=== PATIENT | female | born 1945 | race Caucasian/White ===

== ENCOUNTER 2020-08-17 12:14 | Emergency (ER) | payer MEDICARE, SELFPAY ==
--- NOTE | ~2020-08-17 | XR_ITS ---
EXAMINATION: XR nasal bones min 3V EXAM DATE: 08/17/2020 13:04 INDICATION: Initial encounter following injury, with pain of the nose and upper lip. Dogbite. TECHNIQUE: Nasal bone frontal, bilateral lateral projections. There is no prior study for compariso n. FINDINGS: There are no acute fractures or dislocations identified. There is no subcutaneous gas. Th e soft tissue is unremarkable. Dental implants. IMPRESSION: No acute osseous findings. Reviewed, dictated and finalized at location B. IMPRESSION: No acute osseous findings.
[2020-08-17 12:26] VITALS: BP 121/56; PULSE 71; RESP 16; TEMP 36.5; O2SAT 100
--- NOTE | 2020-08-17 12:43 | ED.ANIMALBIT ---
HPI - Animal Bite General Chief Complaint: Animal Bite Stated Complaint: dog bite to nose Time Seen by Provider: 08/17/20 12:24 Source: patient and RN notes reviewed Mode of arrival: ambulatory Limitations: no limitations History of Present Illness HPI narrative: Patient is a 75-year-old female who presents to emergency department for evaluation of dog bite to the face patient was bending over when her dog bit her on the nose patient notes abrasion to the left side of the nose had a small amount of epistaxis notes aching pain denies other injuries or complaints otherwise in no distress resting comfortably on arrival patient notes her tetanus to be up-to-date in the last 5 years Related Data Allergies Allergy/AdvReac Type Severity Reaction Status Date / Time propoxyphene Allergy Mild Unverified 03/11/18 07:05 Sulfa (Sulfonamide Allergy Mild Unverified 03/11/18 07:05 Antibiotics) Review of Systems Review of Systems: All systems reviewed & are unremarkable except as noted in HPI and below PMFSH Social History Social History (Updated 08/17/20 @ 13:15 by David Gutierres PA-C) Smoking status: Never smoker Exam Narrative: Exam Narrative: GENERAL: Well-appearing, well-nourished, and in no acute distress. HEAD: Normocephalic, atraumatic. EYES: PERRLA and EOMI. ENT: Nares clear, no rhinorrhea or epistaxis. Mucous membranes moist. CHEST: Clear to auscultation. No respiratory distress. No wheezes rales or rhonchi HEART: Regular rate and rhythm. No murmur heard. EXTREMITIES: Normal range of motion. No edema. SKIN: Warm, dry, no rash. Small abrasion to the left nare resolved epistaxis in the nares NEURO: No focal deficits. Alert and oriented x3. PSYCH: Normal mood and affect. Course Course Emergency Course: Patient in the room no distress aware of case findings treatment plan and diagnosis agreeing to follow-up as instructed or to return if symptoms worsen or concerns Vital Signs Vital signs: Vital Signs Temperature 97.7 F 08/17/20 12:26 Pulse Rate 71 08/17/20 12:26 Respiratory Rate 16 08/17/20 12:26 Blood Pressure 121/56 L 08/17/20 12:26 Pulse Oximetry 100 08/17/20 12:26 Temperature 97.7 F 08/17/20 12:26 Pulse Rate 71 08/17/20 12:26 Respiratory Rate 16 08/17/20 12:26 Blood Pressure 121/56 L 08/17/20 12:26 Pulse Oximetry 100 08/17/20 12:26 MDM - Animal Bite MDM Narrative Medical decision making narrative: Patient with superficial abrasions from dog bite felt appropriate for outpatient reevaluation provided with reasons to return Imaging Data Radiologist's impression: ITS Impressions Nasal Bones X-Ray 08/17/20 13:13 IMPRESSION: No acute osseous findings. Discharge Plan Discharge Clinical Impression: Dog bite, Abrasion of nose Patient Disposition: Home, Self-Care Condition: Stable Instructions: Antibiotic Form, Animal Bite (ED) Additional Instructions: Follow up with primary care in the next 2-3 days to set up for re-evaluation return if symptoms worsen or concerns, any increase in redness swelling pain or fever over 100.5 Clean wound with mild soapy water. Apply antibiotic ointment and clean dressing at least three times daily Follow patient education sheets Follow-up/Referrals: Brennen,Crow Cobb MD [Primary Care Provider] -
== END 2020-08-17 13:33 | disposition home or self-care (01) ==
PROVIDERS: Emergency Provider Family Medicine; PCP Internal Medicine
DX: S00.31XA Abrasion of nose, initial encounter (principal); W54.0XXA Bitten by dog, initial encounter
CPT/HCPCS: 70160; 99283

== ENCOUNTER 2023-07-03 12:20 | Emergency (ER) | payer MEDICARE, SELFPAY ==
--- NOTE | ~2023-07-03 | CT_ITS ---
Non-contrast CT scan of the Abdomen and Pelvis Clinical indication: Left lower quadrant pain Technique: 2.5 mm axial scans were obtained through the abdomen and pelvis without intravenous or or al contrast. Dose reduction technique was used on this scan by utilizing automated exposure control a nd iterative reconstruction technique. The dose-length product (DLP) was 250.93 mGy-cm. Findings: Images through the lung bases reveal no abnormalities. There is no evidence of renal or ureteral calculi. The kidneys and the ureters are nondilated. Hypodense hepatic lesions are most compatible with cysts or hemangiomas. The spleen, pancreas, gallbl adder, and adrenals appear normal. There is no aortic aneurysm. There is no evidence of bowel obstruction. Sigmoid diverticulosis noted. Suspected mild wall thickeni ng and pericolonic inflammatory change at the sigmoid colon. Images through the pelvis were performed. There is no evidence of ascites or lymphadenopathy. Urinary bladder unremarkable. No pelvic mass seen. Impression: Suspected mild acute sigmoid diverticulitis versus sequela of chronic diverticulosis. No abscess or f ree air. Probable hepatic cysts and/or hemangiomas. Reviewed, dictated and finalized at location . Impression: Suspected mild acute sigmoid diverticulitis versus sequela of chronic diverticu losis. No abscess or free air. Probable hepatic cysts and/or hemangiomas.
[2023-07-03 12:24] VITALS: BP 140/63; PULSE 66; RESP 16; TEMP 36.8; O2SAT 98
[2023-07-03 12:47] LABS: Basophils Absolute Auto 0.1 K/mm3 (0.0-0.1); Basophils Percent Auto 0.7 % (0.2-1.2); Eosinophils Absolute Auto 0.1 K/mm3 (0-0.3); Eosinophils Percent Auto 0.8 % (0-4.4); Hematocrit 38.5 % (37.0-47.0); Hemoglobin 13.2 g/dL (12.0-15.0); Immature Granulocyte Absolute 0.05 K/mm3 (0.00-0.031); Immature Granulocyte Percent A 0.5 % (0-0.5); Lymphocytes Absolute Auto 1.28 K/mm3 (0.9-3.2); Lymphocytes Percent Auto 13.4 % (18.3-44.2); Mean Corpuscular HGB Conc 34.3 g/dl (32-36); Mean Corpuscular Hemoglobin 30.7 pg (26-34); Mean Corpuscular Volume 89.5 fl (80-100); Mean Platelet Volume 10.2 fl (7.4-10.4); Monocytes Absolute Auto 0.4 K/mm3 (0.1-0.6); Monocytes Percent Auto 4.6 % (2.6-8.5); Neutrophils Absolute Auto 7.6 K/mm3 (1.3-6.7); Platelet Count Result 227 k/mm3 (150-375); Red Cell Distribution Width 12.5 % (11.5-14.5); White Blood Count 9.5 K/mm3 (4.5-10.0)
[2023-07-03 12:59] LABS: Alanine Aminotransferase 14 U/L (6-35); Albumin Level 4.3 g/dL (3.5-5.1); Alkaline Phosphatase 83 U/L (38-126); Anion Gap 7 mmol/L (4-12); Aspartate Amino Transferase 24 U/L (14-36); Bilirubin,Total 0.6 mg/dL (0.2-1.3); Blood Urea Nitrogen 19 mg/dL (7-17); Calcium 9.3 mg/dL (8.4-10.2); Carbon Dioxide 25 mmol/L (22-30); Chloride 103 mmol/L (98-107); Estimated CRCL calculation 49 ml/min; Estimated Glomerular Filt Rate > 60; Glucose 126 mg/dL (65-110); Lipase 113 U/L (23-300); Potassium 3.9 mmol/L (3.4-5.0); Sodium 135 mmol/L (137-145)
[2023-07-03] MEDS: SODIUM CHLORIDE 0.9% IV 500 ML 999 ML IV CONT (13:13)
[2023-07-03] MEDS: MORPHINE SULFATE (*CRX) 4 MG/ML INJ IV PUSH (13:13)
--- NOTE | 2023-07-03 13:21 | PC.NURSE ---
patient ambulated to restroom with standby assistance. states that she had a BM, no blood noted. resting in bed at this time.
[2023-07-03 13:30] VITALS: BP 133/57; PULSE 66; RESP 18; O2SAT 100
--- NOTE | 2023-07-03 13:46 | PC.NURSE ---
Pt returned to room 7 at this time
[2023-07-03 14:24] LABS: Appearance Urine Clear (Clear); Bilirubin Urine Negative (Negative); Blood Urine Negative (Negative); Color Urine Yellow (Yellow); Glucose Urine UA Negative (Negative); Ketones Urine Negative (Negative); Leukocyte Esterase Ur Negative LEU/UL (Negative); Nitrate Urine Negative (Negative); Protein Urine Negative (Negative); Specific Grav Ur 1.008 (1.001-1.035); Urobilinogen Urine 0.2 mg/dL (<2.0); pH Urine 7.5 (5.0-9.0)
[2023-07-03 14:31] LABS: Add Urine Microscopic? NO
--- NOTE | 2023-07-03 14:42 | ED.ABDPAIN ---
HPI - Abdominal Pain General Chief Complaint: Abdominal Pain Stated Complaint: Abd pain Time Seen by Provider: 07/03/23 12:27 Source: patient Mode of arrival: ambulatory Limitations: no limitations History of Present Illness HPI narrative: 78-year-old with a history of diverticulosis here with a complaint of left lower abdominal pain for past few days however since this morning she has been having more pain. She denies any fever or chills. Patient states that she had a bowel movement prior to coming to the ER. Denies any blood in the stool to MD elicited complaint: abdominal pain Pertinent past history: none Onset (ago): day(s) (3) Pain Consistency: constant Location: LLQ Severity: moderate Quality: aching Radiation: none Migration to: no migration Exacerbating factors: nothing Relieving factors: nothing Related Data Allergies Allergy/AdvReac Type Severity Reaction Status Date / Time propoxyphene Allergy Mild Unknown Verified 07/03/23 13:12 Sulfa (Sulfonamide Allergy Mild Hives Verified 07/03/23 13:12 Antibiotics) Review of Systems Review of Systems: All systems reviewed & are unremarkable except as noted in HPI and below Constitutional: Constitutional: Reports no additional constitutional complaints Eyes: Eyes: Reports no additional eye complaints ENT: Reports system reviewed and no additional complaints, except as documented Cardiovascular: Cardiovascular: Reports no additional cardiovascular complaints Gastrointestinal: Gastrointestinal: Reports as per HPI Genitourinary: Genitourinary: Reports no additional female genitourinary complaints Musculoskeletal: Musculoskeletal: Reports no additional musculoskeletal complaints [facility] Social History Social History (Updated 08/17/20 @ 13:15 by David Gutierres, PARemiC) Smoking status: Never smoker Exam Narrative: GENERAL: Well-appearing, well-nourished, and in no acute distress. HEAD: Normocephalic, atraumatic. EYES: PERRLA and EOMI. ENT: Nares clear, no rhinorrhea or epistaxis. Mucous membranes moist. NECK: Supple. CHEST: Clear to auscultation. No respiratory distress. HEART: Regular rate and rhythm. No murmur heard. Normal peripheral pulses. ABDOMEN: Soft, mild tendeness in the llq, nondistended, normal active bowel sounds. EXTREMITIES: Normal range of motion. No edema. SKIN: Warm, dry, no rash. NEURO: No focal deficits. Alert and oriented x3. PSYCH: Normal mood and affect. Course Course Emergency Course: notified patient about her lab work, CT findings. Recommended to take antibiotic as prescribed. Advised to return to the ER if she has high fever or increased pain. Vital Signs Vital signs: Vital Signs Temperature 36.8 C 07/03/23 12:24 Pulse Rate 66 07/03/23 12:24 Respiratory Rate 16 07/03/23 12:24 Blood Pressure 140/63 07/03/23 12:24 Pulse Oximetry 98 07/03/23 12:24 Temperature 36.8 C 07/03/23 12:24 Pulse Rate 66 07/03/23 13:30 Respiratory Rate 18 07/03/23 13:30 Blood Pressure 133/57 L 07/03/23 13:30 Pulse Oximetry 100 07/03/23 13:30 MDM - Abdominal Pain Differential Diagnosis Differential diagnosis: Likely abdominal pain, constipation, diverticulitis, gastroenteritis and small bowel obstruction Lab Data 07/03/23 12:36 07/03/23 12:36 Labs: Lab Results 07/03/23 07/03/23 Range/Units 12:36 14:17 WBC 9.5 (4.5-10.0) K/mm3 RBC 4.30 (4.2-5.4) M/mm3 Hgb 13.2 (12.0-15.0) g/dL Hct 38.5 (37.0-47.0) % MCV 89.5 (80-100) fl MCH 30.7 (26-34) pg MCHC 34.3 (32-36) g/dl RDW 12.5 (11.5-14.5) % Plt Count 227 (150-375) k/mm3 MPV 10.2 (7.4-10.4) fl Immature Gran % (Auto) 0.5 (0-0.5) % Neut % (Auto) 80.0 H (45.5-73.1) % Lymph % (Auto) 13.4 L (18.3-44.2) % [place] % (Auto) 4.6 (2.6-8.5) % Eos % (Auto) 0.8 (0-4.4) % Baso % (Auto) 0.7 (0.2-1.2) % Lymph # (Auto) 1.28 (0.9-3.2) K/mm3 [place] # (Auto)
[2023-07-03 15:13] VITALS: BP 132/84; PULSE 74; RESP 14; O2SAT 99
== END 2023-07-03 15:13 | disposition home or self-care (01) ==
PROVIDERS: Emergency Provider Family Medicine; PCP Internal Medicine
DX: K57.32 Diverticulitis of large intestine without perforation or abscess without bleeding (principal)
CPT/HCPCS: 36415; 74176; 80053; 81003; 83690; 85025; 96361; 96374; 99284; J2270; J7040

== ENCOUNTER 2023-12-13 07:32 | Day surgery (SDC) | payer MEDICARE, SELFPAY ==
[2023-11-21 15:14] VITALS: BMI 23.7
[2023-12-03 10:15] VITALS: BMI 22.4
[2023-12-13 07:58] VITALS: BP 155/70; PULSE 71; RESP 16; TEMP 36.8; O2SAT 100; BMI 22.8
--- NOTE | 2023-12-13 08:09 | WPDHPUPDATE1 ---
History and Physical Update Update Date/Time: 12/13/23 08:09 History and Physical has been reviewed, including an updated exam of the patient. There are NO changes in the patient's condition. Risks, benefits, and alternatives have been discussed and questions answered. Patient agrees to proceed with procedure.
--- NOTE | 2023-12-13 08:11 | WPDANESEPPF ---
Anes - Initial Pre Proc Eval Procedure: Operation Date: 12/13/23 09:00 Proposed Procedures p Diagnostic Colonoscopy - Chapincito Dias MD Date/Time: 12/13/23 08:11 Surgeon: Chapincito Dias MD Pre Op Diagnosis: Diverticulitis w/o Perf or ABS, IBS w/Constipation Patient Data Age: 78 Gender: F Height: 1.68 m Weight: 64.3 kg Last Vital Signs Temp 36.8 C 12/13/23 07:58 Pulse 71 12/13/23 07:58 Resp 16 12/13/23 07:58 BP 155/70 H 12/13/23 07:58 Pulse Ox 100 12/13/23 07:58 O2 Del Method Room Air 12/13/23 07:58 Allergies Allergy/AdvReac Type Severity Reaction Status Date / Time propoxyphene Allergy Mild Unknown Verified 12/13/23 07:51 Sulfa (Sulfonamide Allergy Mild Hives Verified 12/13/23 07:51 Antibiotics) Home Medications Medication Instructions Recorded Confirmed Type alprazolam 0.25 mg tablet (Xanax) 0.25 mg PO QHS PRN Anxiety 11/14/23 12/13/23 History dicyclomine 10 mg capsule 10 mg PO BID 11/14/23 12/13/23 History prucalopride 2 mg tablet 2 mg PO DAILY 11/14/23 12/13/23 History (Motegrity) sertraline 20 mg/mL oral 20 mg PO DAILY 11/14/23 12/13/23 History concentrate (Zoloft) hydroxyzine HCl 10 mg tablet 10 mg PO DAILY PRN ALLERGIES 12/03/23 12/13/23 History metoprolol tartrate 25 mg tablet 12.5 mg PO BID 12/03/23 12/13/23 History Patient hx anesthesia problems: none Family hx anesthesia problems: none Results Review: All pre-operative results and documents have been reviewed as part of the pre-operative evaluation. [facility] Past Medical History Medical History Anxiety and depression Diverticulitis Diverticulosis HTN (hypertension) Irritable bowel syndrome with constipation Surgical History Surgical History (Updated 12/13/23 @ 08:11 by Ferny Mireles MD) H/O exploratory laparotomy Social History Social History Smoking status: Never smoker Alcohol intake: never Substance use: never Substance use type: does not use Living arrangements: with family Spiritual care concerns: No Anes - Eval Final PreProcedure Day of Procedure 12/13/23 08:11 Patient weight: normal Heart: regular rate and rhythm Lungs: clear to auscultation Airway: Mallampati scale class II Neurological: alert and oriented Last oral intake: >/= 8 hours ASA classification: III Emergent: no Anesthetic plan: proceed Anesthesia type and monitoring: general GIVS and standard monitoring Results Review: All pre-operative results and documents have been reviewed as part of the pre-operative evaluation. Informed Consent: The patient's anesthetic plan and its attendant risks and benefits were discussed with the patient/family/POA. Questions were solicited and answers provided to the satisfaction of the patient/family/POA.
[2023-12-13] MEDS: LACTATED RINGERS 1,000 ML 150 ML IV CONT (08:12)
[2023-12-13 08:58] VITALS: BP 112/57; PULSE 69; RESP 14; O2SAT 100
[2023-12-13 09:08] VITALS: BP 97/57; PULSE 70; RESP 14; O2SAT 100
--- NOTE | 2023-12-13 09:12 | WPDANESPN ---
Anes - Prog Note Post-Op Date/Time: 12/13/23 09:12 Cardiovascular status: normal Respiratory status: normal Airway patency: baseline Mental status: baseline Post-Op hydration status: normal Vital Signs: Last Vital Signs Temp 36.8 C 12/13/23 07:58 Pulse 70 12/13/23 09:08 Resp 14 12/13/23 09:08 BP 97/57 L 12/13/23 09:08 Pulse Ox 100 12/13/23 09:08 O2 Del Method Room Air 12/13/23 09:08 Pain Score (VAS): 0/10 Patient Feedback: Patient satisfied with anesthetic care.
[2023-12-13 09:16] VITALS: BP 132/63; PULSE 64; RESP 16; O2SAT 100
== END 2023-12-13 09:26 | disposition home or self-care (01) ==
PROVIDERS: PCP Internal Medicine; Visit Provider Internal Medicine Gastroenterology
PROC: 0DJD8ZZ Inspection of Lower Intestinal Tract, Via Natural or Artificial Opening Endoscopic (ICD-10-PCS; CPT 45378; principal; 2023-12-13 09:00)
DX: K57.90 Diverticulosis of intestine, part unspecified, without perforation or abscess without bleeding (principal); K57.30 Diverticulosis of large intestine without perforation or abscess without bleeding; K64.8 Other hemorrhoids; R10.84 Generalized abdominal pain
CPT/HCPCS: 45378

== ENCOUNTER 2024-05-06 13:00 | Outpatient (CLI) | payer MEDICARE, SELFPAY ==
--- NOTE | ~2024-05-06 | CT_ITS ---
EXAMINATION: CT abdomen pelvis wo con DATE: 05/06/2024 13:31 INDICATION: Abdominal pain. TECHNIQUE: Computed tomography (CT) of the abdomen and pelvis was performed without intravenous contr ast. Automated exposure control and iterative reconstruction technique were employed. The dose-length product was 264.30 mGy-cm. COMPARISON: 07/03/2023 FINDINGS: Minimal discoid atelectasis in the left lower lobe. Heart size is normal. No pericardial or pleural e ffusion. Again seen are 3 low-attenuation and hepatic cysts the largest in the right hepatic lobe scotty suring 1.8 cm in maximal diameter. Gallbladder, spleen, pancreas, bilateral adrenal glands and kidney s are normal. Moderate diverticulosis along the sigmoid colon without adjacent from trace stranding t o suggest diverticulitis. There is wall thickening along the descending colon without associated dive rticula which could be more consistent with focal mild colitis. Small bowel and appendix are normal. Bladder is normal. Anteverted uterus and bilateral adnexa are unremarkable. No free intraperitoneal g as or fluid. No pathologically enlarged abdominal or pelvic lymphadenopathy. 15 degrees thoracolumbar dextrocurvature with moderate spondylosis. IMPRESSION: 1. Inflammatory stranding surrounding the descending colon which is not associated with the more dist al sigmoid diverticulosis and would favor focal colitis which could be infectious or, inflammatory or ischemic in etiology. Reviewed, dictated and finalized at location A. DEVELOPER IMPRESSION: 1. Inflammatory stranding surrounding the descending colon which is not associa francine with the more distal sigmoid diverticulosis and would favor focal colitis w hich could be infectious or, inflammatory or ischemic in etiology.
--- OUTSIDE RECORDS SUMMARY | 2024-05-06 13:06 | XMS_ITS | Encounter Summary ---
Author Organization [facility] Address [address] [place] [address] Phone Care Team Providers Care Architectural Design Professor Name Role Phone Crow Hutton MD Primary Care Provider Crow Hutton MD Unavailable [phone] Reason for Visit * Reason Onset Date Comments Diverticulitis 05/05/2024 Encounter Details Date Type Department Care Team (Late st Contact Info) Description 05/05/2024 Telephone [facility] Gastroenterology [address] 12th [place] [address] [place] [address] Maite Tristan Diverticulitis Social History Tobacco Use Types Packs/Day Years Used Date Smoking Tobacco: Never Smokeless Tobacco: Never Alcohol Use Standard Drinks/Week Comments No 0 (1 standard drink = 0.6 oz pur e alcohol) PHQ-2 Answer Date Recorded PHQ-2 Total Score (If total score is 3 or more points, staff should administer the PHQ-9) 0 08/08/2023 Exercise Vital Sign Answer Date Recorde d Days of Exercise per Week 5 days 2018 Minutes of Exercise per Session 50 min 05/20/2018 Comments No Sex and Gender Information Value Date Recorded Sex Assigned at Not on file 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 She needs CT a/p no contrast to r/o diverticulitis, abd pain. Would like this set up at [facility] today if possible. Called [facility] at [phone] and they can accommodate her today if ordered stat and she has a PA completed. Devorha senta request to precert and will fax the finalized order and PA to them at [phone] then call backto schedule it. Patricia will have her drive her, it is down the [address]. ICAL RESEARCH ENGINEER * Telephone Encounter - Maite Tristan - 05/05/2024 3:26 PM CHEMICAL RESEARCH ENGINEER Rcv'd vm msg from pt she thinks she may be having a diverticulitis attack and with incoming snow storm is trying to avoid going to ER. Requesting call back to see if maybe she needs antibiotics. #[phone] ICAL RESEARCH ENGINEER documented in this encounter Plan of Treatment Not on file documented as of this encounter Visit Diagnoses Not on filedocumented in this encounter Care Teams Architectural Design Professor Relationship Specialty Start Date End Date Crow Hutton MD [address] [place] [address] PCP - General 06/21/17 Crow Hutton MD [address] [place] [address] 06/21/17 documented as of this encounter
--- OUTSIDE RECORDS SUMMARY | 2024-05-06 13:06 | XMS_ITS | Encounter Summary ---
Author Organization [facility] Address [address] [place] [address] Phone Care Team Providers Care Rvda Master Certified Rv Technician Name Role Phone Crow Hutton MD Primary Care Provider Crow Hutton MD Unavailable [phone] Reason for Referral * Diagnostic Imaging (Routine) - Authorized Specialty Diagnoses / Procedures Referred By Contac t Referred To Contact Diagnoses Abdominal pain History of diverticulitis Procedures CT Abdomen Pelvis WO Contrast Jimmy Morrison MD [address] [place] [address] Phone: tel: fax: External Order Referral ID Status Reason Start Date Expiration Date V isits Requested Visits Authorized [id number] Authorized 05/06/2024 06/05/2025 1 1 RVISOR MET[employer]ABRICATING Encounter Details Date Type Department Care Team (Late st Contact Info) Description 05/06/2024 Orders Only [facility] Gastroenterology [address] [facility] [address] [place] [address] [place] [id number] Jimmy Morrison MD [address] [place], [place] [id number] Abdominal pain (Primary Dx); History of diverticulitis Social History Tobacco Use Types Packs/Day Years [...] on file 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 Gender Identity Not on file Sexual Orientation Not on file 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 file Not on file N ot on file documented as of this encounter Plan of Treatment Scheduled Orders Name Type Priority Associated Diagnoses Orde r Schedule CT Abdomen Pelvis WO Contrast Imaging Schedule Routine, Read Routine (OP Routine) Abdominal pain History of diverticulitis Expected: 05/06/2024, Expires: 06/03/2024 documented as of this encounter Visit Diagnoses Diagnosis Abdominal pain- Primary Abdominal pain, unspecified site History of diverticulitis documented in this encounter Care Teams Rvda Master Certified Rv Technician Relationship Specialty Start Date End Date Crow Hutton MD [address] [place] [address] PCP - General 06/21/17 Crow Hutton MD [address] [place] [address] 06/21/17 documented as of this encounter
--- OUTSIDE RECORDS SUMMARY | 2024-05-06 13:06 | XMS_ITS | Clinical Summary ---
Author Organization [facility] Address [facility] [place] [address] Care Team Providers Care Carpenter Packing Name Role Phone Crow Hutton MD Primary Care Provider Allergies Active Allergy Reactions Criticality Noted Date Comments Sulfa Antibiotics Rash Low 12/19/2017 Medications metoprolol tartrate 50 MG tablet Take by mouth 2 (two) times daily. Active atorvastatin 20 MG tablet Take 20 mg by mouth daily. Active sertraline 100 MG tablet Take 150 mg by mouth daily. Active polyethylene glycol powder Take 17 g by mouth daily. Dissolve powder in 240 mL water Active Vaginal Lubricant (REPLENS) Gel Use vaginally 2-3 times daily as directed for the next week 35 g 2 8 Active Family History Medical History Relation Comments Heart Disease Father Diabetes Mother Hypertension Mother Relation Status Comments Father Mother Social History Tobacco Use Types Packs/Day Years Used Date Smoking Tobacco: Never Smokeless Tobacco: Never Alcohol Use Standard Drinks/Week Comments Yes 0 (1 standard drink = 0.6 oz pur e alcohol) RARELY AUDIT-C Answer Date Recorded Frequency of Alcohol Consumption Never 01/22/2019 Average Number of Drinks Not on file 019 Frequency of Binge Drinking Not on file 08/2018 Comments No Sex and Gender Information Value Date Recorded Sex Assigned at Not on file Legal Sex Female 7:32 PM CDT Gender Identity Not on file Sexual Orientation Not on file Last Filed Vital Signs Vital Sign Reading Time Taken Comments Blood Pressure 133/66 12/19/2017 9:25 AM CDT Pulse 62 12/19/2017 9:25 AM CDT Temperature 36.2 C (97.1 F) 12/19/2017 9:25 AM CDT Respiratory Rate 20 12/19/2017 9:25 AM CDT Oxygen Saturation 99% 12/19/2017 9:27 AM CDT Inhaled Oxygen Concentration - - Weight 63 kg (139 lb) 12/19/2017 9:25 AM CDT Height 167.6 cm (5' 6 ) 12/19/2017 9:25 AM CDT Body Mass Index 22.44 12/19/2017 9:25 AM CDT Plan of Treatment Health Maintenance Due Date Last Done Comments Hepatitis C 1963 Annual Medicare Wellness Visit 2012 Pneumococcal Vaccine: 65+ Years (2 of 2 - PPSV23 or PCV20) 06/02/2015 06/01/2014 DTaP, Tdap and Td Vaccines (2 - Td or Tdap) 04/10/2022 04/10/2012 RSV Immunization or 60+ Years (1 - 1-dose 75+ series) 2022 COVID-19 Vaccine ( season) 2023 07/25/2021, 01/03/2021, 05/29/2020, Additional history exists Influenza Adult (#1) 2023 12/14/2020, 12/15/2019, 12/10/2018, Additional history exists Zoster Vaccines Completed 01/04/2019, 10/07/2018 Dexa Scan (General) Completed 12/27/2021 Meningococcal B Vaccine Aged Out No l onger eligible based on patient's age to complete this topic Meningococcal Vaccine Aged Out No vera maximilian eligible based on patient's age to complete this topic RSV Immunizations Under 20 Months Aged Out No longer eligible based on patient's age to complete this topic Insurance MEDICARE [facility] Care Teams Carpenter Packing Relationship Specialty Start Date End Date Crow Hutton MD [address] [place] [address] PCP - General INTERNAL MEDICINE 12/19/17
--- OUTSIDE RECORDS SUMMARY | 2024-05-06 13:06 | XMS_ITS | Encounter Summary ---
Author Organization [facility] Address [address] [place] [address] Phone Care Team Providers Care Manager Background Name Role Phone Crow Hutton MD Primary Care Provider Crow Hutton MD Unavailable [phone] Encounter Details Date Type Department Care Team (Late st Contact Info) Description 07/24/2022 Telephone [facility] [address] [place] [address] Erick Hoyt Social History Tobacco Use Types Packs/Day Years Used Date Smoking Tobacco: Never Smokeless Tobacco: Never Alcohol Use Standard Drinks/Week Comments No 0 (1 standard drink = 0.6 oz pur e alcohol) Exercise Vital Sign Answer Date Recorde d Days of Exercise per Week 5 days 2018 Minutes of Exercise per Session 50 min 05/20/2018 Comments No Sex and Gender Information Value Date Recorded Sex Assigned at Not on file 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
--- OUTSIDE RECORDS SUMMARY | 2024-05-06 13:06 | XMS_ITS | Encounter Summary ---
Author Organization [facility] Address [address] [place] [address] Phone Care Team Providers Care Wood Filler Name Role Phone Crow Hutton MD Primary Care Provider Crow Hutton MD Unavailable [phone] Encounter Details Date Type Department Care Team (Late st Contact Info) Description 05/06/2024 Telephone [facility] Gastroenterology [address] 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 They have the orders and no PA req. She will get her up and have him bring her.Radiology has Tamiko Galvez's cell for results. T ELECTRICIAN documented in this encounter Plan of Treatment Not on file documented as of this encounter Visit Diagnoses Not on filedocumented in this encounter Care Teams Wood Filler Relationship Specialty Start Date End Date Crow Hutton MD [address] [place] [address] PCP - General 06/21/17 Crow Hutton MD [address] [place] [address] 06/21/17 documented as of this encounter
--- OUTSIDE RECORDS SUMMARY | 2024-05-06 13:06 | XMS_ITS | Clinical Summary ---
Author Organization [facility] Address [address] [place] [id number] Care Team Providers Care Hydrogen Treater Name Role Phone Crow Hutton MD Primary Care Provider Crow Hutton MD Unavailable [phone] Allergies Active Allergy Reactions Criticality Noted Date Comments Amoxicillin-Pot Clavulanate Nausea & Vomiting Low 0 12/14/2021 Iodinated Contrast Media Chest tightness Medium 2018 Sulfa (Sulfonamide Antibiotics) Rash Medium Sulfasalazine Rash Medium 12/19/2017 Medications sertraline (ZOLOFT) 100 mg tabletIndications :pt stated downed dosage to 150mg Take 1 tablet (100 mg total) by mouth every morning Pt stated the dose was increased to 50mg ore 4 8 Active vit C/E/Zn/coppr/lute in/zeaxan (PRESERVISION AREDS-2 ORAL) Take by mouth Ac tive prucalopride (Motegrity) 2 mg tabletIndications :chronic idiopathic constipation Take 1 tablet (2 mg total) by mouth daily 30 tablet 11 4 Active ALPRAZolam (XANAX) 1 mg tablet Take 1 tablet (1 mg total) by mouth nightly as needed 4 Active tretinoin (RETIN-A) 0.025 % gel Apply topically nightly REQUESTING BRAND 45 g 1 4 Active dicyclomine (BENTYL) 10 mg capsule TAKE 1 CAPSULE(10 MG) BY MOUTH FOUR TIMES DAILY BEFORE MEALS AND AT NIGHT AND AT BEDTIME WITH MEALS 360 capsule 4 Active metoprolol tartrate (LOPRESSOR) 25 mg immediate release tablet Take 1 tablet (25 mg total) by mouth 2 (two) times a day Active metroNIDAZOLE (METROGEL) 0.75 % gelIndications:Ac ne Rosacea Apply twice daily to rosacea 45 g 5 4 03/07/20 25 Active Active Problems Problem Noted Date Diagnosed Date Colon cancer screening 09/21/2022 Assessment & Plan (09/21/2022 3:23 PM CDT): Has family history, last colonoscopy 5 years ago, usually goes every 4 years. Her GI doctor in [place] retired and requesting a scope here at the end of December. Hay fever 07/25/2022 Assessment & Plan (07/25/2022 10:21 AM CDT): --Claritin daily -- Hydroxyzine at night and up to 3 times a day for the itching short term --Flonase AM and PM --Zaditor eye drops for the allergy in eyes --Triamcinolone topical cream eyelids only 1 week--then neck and back and ankles for 2 weeks Osteopenia of multiple sites 12/14/2021 Irritable bowel syndrome with constipation 08/22 Assessment & Plan (09/21/2022 3:22 PM CDT): Symptoms improved on motegrity and bentyl. Still taking metamucil with some efficacy. Unfortunately motegrity very expensive. Has enough for the next few months. Discussed going back to [place] which she will consider due to cost. For now will continue current treatment regimen. Assessment & Plan (07/14/2021 1:48 PM CDT): Constipation is likely multifactorial in setting of IBS-C and pelvic floor dysfunction. She has abdominal cramping, which is worse when she is constipated. Occasionally will have spastic colon attacks, which also sound like they are driven by constipation, although she may have had diverticulitis at one point, as per CT 3 years ago. - Recommend continuing with motegrity 1/2 tab per day, which overall seems like it keeps her fairly regular. Advised that she set a hard timepoint at which to take a second 1/2 tab if she has not had a BM yet (for example, take first half tab in am, and if no BM by mid-afternoon, take second half). We have avoided scheduling full tab daily due to prior diarrhea on that regimen. - Start taking daily bentyl TID, can gradually uptitrate if not responding. - Continue with daily metamucil. If symptoms not improving, we will discontinue this given that it may not be helping - Adequate hydration an exercise. - Repeat colonoscopy in 2022 (family hx of colon cancer) Hyperlipidemia 03/27/2017 Acne 07/20/2016 Cervical lymphadenopathy 06/04/2015 Allergic rhinitis 11/30/2014 Keratosis, senilis 08/14/2014 Dermatitis venenata 08/27/2013 Overview (06/29/2017): Impression: [facility] 0.1% on neck, HC on face. 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 b.i.d -She is now back in sinus rhythm as of Sunday AM -would order an echocardiogram given it lasted for a number of hours and that there is a decent likelihood this has been occurring as an outpt -would obtain a TSH to rule out secondary causes, although this is low on the differential -I tried to add on a NT-ProNBP. Would order one tonight if not resulted -her chads-Vasc score is 3 (htn, female, age), so if she remains in atrial fibrillation intermediate designer, she should be on anticoagulant (prefer a DOAC such as apixaban or rivaroxaban). -If she has no recurrent AF during hospitalization, would plan to DC with 30D event monitor to screen for occult Afib, baby aspirin, and PCP follow up. 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 Lentigo 08/14/2014 09/26/2018 Epidermoid cyst 02/07/2013 09/26/2018 Encounters Date Type Department Care Team Description 05/06/2024 Telephone [facility] [address] [place] [address] Advanced Medicine [facility] [place] [address] Nancy Kevin RN 05/06/2024 Orders Only [facility] [address] [place] [address] Medicine [facility] [place] [address] [place] [address] Jimmy Morrison MD Abdominal pain (Primary Dx); History of diverticulitis 05/05/2024 Telephone [facility] [address] [place] [address] Medicine [facility] [place] [address] [place] [address] Maite Tristan Diverticulitis 04/03/2024 Telephone [facility] [address] [place] [address] [place] [id number] Nancy Kevin RN 03/07/2024 10:30 AM [employer] AND [employer]ING GUIDE Office Visit [address] [address] Daiana Crowell NP Rosacea (Primary Dx) 03/07/2024 Orders Only [address] [phone] Crow Hutton MD from Last 3 Months Immunizations Immunization Administration Dates Next Due Influenza, Quad, Adjuvantate d, Intramuscular 12/01/2022 Influenza, Quadrivalent, Hig h Dose, Preservative Free, Intrr 12/14/2021,12/14/2020,12/15/2019 Influenza, Trivalent, Adjuva nted, Intramuscular 01/01/2018 Influenza, Trivalent, High D ose, Split, Preservative Free, Intramuscular 12/10/2018,12/19/2016,12/11/2015,11/30,12/01/2013 Influenza, Trivalent, IM (MDV) 01/10/2013 Influenza, Unspecified 12/14/2020 Pfizer SARS-CoV-2 Monovalent Vaccination (12+ Yrs) PURPLE 07/25/2021,01/03/2021,05/29/2020,05/08 Pneumococcal Conjugate PCV 13 06/01/2014 Pneumococcal Conjugate Pcv20 08/08/2023 Pneumococcal, Unspecified 09/03/2008 RSV, Bivalent, Protein Subun it Rsvpref, Diluent (Abrysvo) 11/23/2022 Tdap 04/10/2012 ZOSTER LIVE 03/18/2199 ZOSTER Recombinant 01/04/2019,10/07/2018 Surgical History Surgery Date Site/Laterality Comments D&C FIRST TRIMESTER / TX INCOMPLETE / MISSED / SEPTIC / INDUCED BREAST BIOPSY 03/19/1991 - 03/18/1992 breast biopsy COSMETIC SURGERY 03/19/1993 - 03/18/1994 face lift RADIOFREQUENCY ABLATION 03/19/2007 - 03/18/2008 Bilateral greater saphenous vein COLONOSCOPY 01/17/2018 - 02/15/2018 ROTATOR CUFF REPAIR Medical History Medical History Date Comments Hypertension Depression IBS (irritable bowel syndrome) HLD (hyperlipidemia) Diverticulosis Bilateral ovarian cysts 04/09/2018 Added au tomatically from request for surgery [id number] Family History Medical History Relation Name Comments Coronary artery disease Father Fami ly history of coronary artery disease - (Added by TW Conv) Heart attack Father Stroke Maternal Grandmother Alzheimer's disease Mother Family h istory of Alzheimer's disease - (Added by TW Conv) Diabetes Mother Family history of diabetes mellitus - (Added by TW Conv) Anesthesia problems Neg Hx Relation Name Status Comments Father of [place] at a ge 61 Maternal Grandmother CVA at age 70 Mother Social History Tobacco Use Types Packs/Day Years Used Date Smoking Tobacco: Never Smokeless Tobacco: Never Tobacco Cessation:Counseling Given: Not Answered Alcohol Use Standard Drinks/Week Comments No 0 [...] on file Legal Sex Female 8:22 PM H[employer]TING AND [employer]ING GUIDE Gender Identity Not on file Sexual Orientation Not on file 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 file Not on file N ot on file Obstetrics History Para Term AB IAB SAB Ectopic Multiple Livin g Live Births 1 1 1 03 19 Date Outcome GA Total Labor Labor//3rd Weight Sex Type Anes PTL Mora A1 A5 Name Clin 1964 Term M Vag-S pont None Living Complications:None Last Filed Vital Signs Vital Sign Reading Time Taken Comments Blood Pressure 134/62 03/07/2024 10:17 AM H[employer]TING AND FISHING GUIDE Pulse 62 03/07/2024 10:17 AM H[employer]TING AND [employer]ING GUIDE Temperature 36.3 C (97.3 F) 12/27/2023 2:34 PM CDT Respiratory Rate 16 05/11/2018 11:40 PM H[employer]TING AND FISHING GUIDE Oxygen Saturation 97% 03/07/2024 10:17 AM H[employer]TING AND FISHING GUIDE Inhaled Oxygen Concentration - - Weight 65.3 kg (144 lb) 03/07/2024 10:17 AM H[employer]TING AND FISHING GUIDE Height 167.6 cm (5' 6 ) 12/27/2023 2:34 PM CDT Body Mass Index 23.24 12/27/2023 2:34 PM CDT Plan of Treatment Health Maintenance Due Date Last Done Comments Fall Risk Assessment 1945 Hepatitis B Screening 1963 DTaP/Tdap/Td Vaccine (2 - Td or Tdap) 04/10/2022 04/10/2012 Covid-19 Vaccine ( season) 2023 05/29/2023, 12/08/2022, 08/15/2022, Additional history exists Influenza Vaccine (#1) 2023 , 12/14/2021, 12/14/2020, Additional history exists Osteoporosis Screening-Bone Density Scan 12/28/2023 12/27/2021, 10/17/2018 Depression Screening 08/07/2024 08/08/2023 Well Visit 65+ 08/07/2024 08/08/2023, 07/18, 12/14/2021, Additional history exists Zoster Vaccine Completed 03/18/2199, 12/17, 10/07/2018 Hepatitis C Screening Completed 12/14/2021 Breast Cancer Screening-Mammogram Discontinued 06/18/2023, 03/04/2022, 02/18/2021, Additional history exists Pneumococcal vaccine 65+ Completed 024, 06/01/2014, 09/03/2008 Procedures Procedure Name Priority Date/Time Associated Diagnosis Comments DEXA AXIAL SKELETON BONE DENSITY 1 OR MORE SITES Schedule Routine, Read Routine (OP Routine) 12/27/2021 9:19 AM CDT Osteopenia of multiple sites HEPATITIS C ANTIBODY Routine 12/14/2021 1:56 PM CDT Encounter for wellness examination in adult from Last 3 Months or Most Recently Relevant to Health Maintenance Results * Dexa Axial Skeleton Bone Density 1 or 2 Site (12/27/2021 9:19 AM CDT) Anatomical Region Laterality Modality Body N/A Digital Radiogra phy 12/27/2021 9:29 AM CDT Impressions 12/28/2021 3:39 PM CDT 1. The bone mineral density of the lumbar spine is normal. There has been a statistically significant decrease in bone mineral density since the baseline examination of 10/26/1999. 2. The bone mineral density of the left femoral neck is mildly decreased. There has been a statistically significant decrease in bone mineral density since the baseline examination of 10/26/1999. 3. The bone mineral density of the left total hip is mildly decreased. There has been a statistically significant decrease in bone mineral density since the baseline examination of 10/26/1999. 4. Overall, the above findings are diagnostic of low bone mass (osteopenia) by WHO criteria. 5. Based on the FRAX fracture risk model, the 10-year probability for major osteoporotic fracture is 11% and that for hip fracture is 2.5%. This 10-year fracture risk estimate was calculated using the risk factors noted in the history above, along with the femoral neck bone density. FRAX is intended to help guide treatment decisions in men over age 50 and postmenopausal women with low bone mass (osteopenia). The National Osteoporosis Foundation (NOF) recommends that FDA-approved medical therapies be considered in postmenopausal women and men age 50 years and older with osteoporosis and those with low bone mass whose 10-year fracture probability by FRAX is >= 20% for major osteoporotic fracture or >= 3% for hip fracture. However, all treatment decisions require clinical judgment and consideration of individual patient factors, including patient preferences, comorbidities, previous drug use, risk factors not captured in the FRAX model (e.g., frailty, falls, vitamin D deficiency, increased bone turnover, interval significant decline in bone density) and possible under- or overestimation of fracture risk by FRAX. General comments regarding interpretation of bone density measurements: A) In children, premenopausal woman and males under age 50 not at increased risk for fractures only Z-scores, not T-scores are used to indicate risk. A Z-score above -2.0 is defined as within the expected range for age and Z-score at or less than -2.0 is below the expected range for age . A Z-score below the expected range for age in a patient with recent fractures and/or chronic corticosteroid treatment is consistent with a diagnosis of osteoporosis. B) In post menopausal women and males over 50, comparison of the measured bone mineral density with the average value in young normal subjects (the T-score ) has been found to be useful in assessing fracture risk. Fracture risk approximately doubles for each 1.0 standard deviation (SD) in individual's hip or spine bone mineral density is below the average value of young normal subjects. The World Health Organization (WHO) has defined T-scores of -1.0 to -2.5 as diagnostic of low bone mass (OSTEOPENIA), and T-scores of -2.5 or lower to be diagnostic of OSTEOPOROSIS, based on the site of lowest bone density. Note that there will be a change in reporting format and reference databases as patients move from the younger population (group A) to the older population (group B) The National Osteoporosis Foundation (www.nof.org) recommends adequate intake of calcium and vitamin D and regular weight-bearing exercise in all patients. They recommend pharmacologic treatment in postmenopausal women and men age 50 and older presenting with any of the followin) Osteoporosis, after appropriate evaluation to exclude secondary causes. 2) A hip or vertebral (clinical or radiographic) fracture, regardless of the bone density. 3) Low bone mass (Osteopenia) and one or more of: other prior fractures, secondary causes associated with high risk of fracture (such as glucocorticoid use or total immobilization), or computed high risk of fracture (10-yr probability of hip fracture >= 3% or a 10-yr probability of any major osteoporosis-related fracture >= 20% based on the [place].-adapted WHO algorithm), available at http://www.shef.ac.uk/FRAX). The radiology attending physician has personally reviewed this study, and had reviewed and/or edited this written report and agrees with it. Electronically signed by: Kamran Mahoney M.D. Narrative 12/28/2021 3:39 PM CDT BONE DENSITOMETRY OF THE SPINE AND HIP DATE OF STUDY: 12/27/2021 HISTORY: 76-year-old postmenopausal woman with no recent fractures. She is being treated with Vitamin D. Evaluate bone mineral density. Additional risk factors for fracture: none. FINDINGS (SPINE): The bone mineral density of L1-L4 was assessed by dual-energy x-ray absorptiometry. The average bone mineral density within this region is 0.999 gm/sq-cm. This is 1.9 standard deviations above the mean of the average bone mineral density for age- and gender-matched subjects (the Z-score). It is 0.4 standard deviations below the mean peak bone mineral density in young adults (the T-score). FINDINGS (FEMORAL NECK): The bone mineral density of the left femoral neck was assessed by dual-energy x-ray absorptiometry. The average bone mineral density within the femoral neck region is 0.652 gm/sq-cm. This is 0.3 standard deviations above the mean of the average bone mineral density for age- and gender-matched subjects (the Z-score). It is 1.8 standard deviations below the mean peak bone mineral density in young adults (the T-score). FINDINGS (TOTAL HIP): The bone mineral density of the left hip was assessed by dual-energy x-ray absorptiometry. The average bone mineral density within the total hip region is 0.813 gm/sq-cm. This is 0.7 standard deviations above the mean of the average bone mineral density for age- and gender-matched subjects (the Z-score). It is 1.1 standard deviations below the mean peak bone mineral density in young adults (the T-score). SUMMARY OF CURRENT RESULTS: Region BMD T-score Z-score AP Spine (L1-L4) 0.999 -0.4 1.9 Femoral Neck (Left) 0.652 -1.8 0.3 Total Hip (Left) 0.813 -1.1 0.7 COMPARISON WITH PREVIOUS RESULTS Region Age BMD T-score BMD Change BMD Change Exam Date g/cm2 vs Baseline vs Previous AP Spine (L1-L4) 12/27/2021 76 0.999 -0.4 -4.4%# -0.9% 10/17/2018 73 1.008 -0.4 -3.5%# -8.9%# 04/13/2003 57 1.107 0.5 6.0%* 6.0%* 10/26/1999 54 1.044 Femoral Neck(Left) 12/27/2021 76 0.652 -1.8 -5.6%# 3.2% 10/17/2018 73 0.631 -2.0 -8.5%# -9.1%# 04/13/2003 57 0.695 -1.4 0.6% 0.6% 10/26/1999 54 0.690 -1.4 Total Hip(Left) 12/27/2021 76 0.813 -1.1 -3.6%# 2.2% 10/17/2018 73 0.795 -1.2 -5.7%# -3.7%# 04/13/2003 57 0.825 -1.0 -2.1% -2.1% 10/26/1999 54 0.843 -0.8 *Denotes significance at 95% confidence level # Denotes dissimilar scan types or analysis methods Procedure Note Kamran Mahoney MD - 12/28/2021 BONE DENSITOMETRY OF THE SPINE AND HIP DATE OF STUDY: 12/27/2021 HISTORY: 76-year-old postmenopausal woman with no recent fractures. She is being treated with Vitamin D. Evaluate bone mineral density. Additional risk factors for fracture: none. FINDINGS (SPINE): The bone mineral density of L1-L4 was assessed by dual-energy x-ray absorptiometry. The average bone mineral density within this region is 0.999 gm/sq-cm. This is 1.9 standard deviations above the mean of the average bone mineral density for age- and gender-matched subjects (the Z-score). It is 0.4 standard deviations below the mean peak bone mineral density in young adults (the T-score). FINDINGS (FEMORAL NECK): The bone mineral density of the left femoral neck was assessed by dual-energy x-ray absorptiometry. The average bone mineral density within the femoral neck region is 0.652 gm/sq-cm. This is 0.3 standard deviations above the mean of the average bone mineral density for age- and gender-matched subjects (the Z-score). It is 1.8 standard deviations below the mean peak bone mineral density in young adults (the T-score). FINDINGS (TOTAL HIP): The bone mineral density of the left hip was assessed by dual-energy x-ray absorptiometry. The average bone mineral density within the total hip region is 0.813 gm/sq-cm. This is 0.7 standard deviations above the mean of the average bone mineral density for age- and gender-matched subjects (the Z-score). It is 1.1 standard deviations below the mean peak bone mineral density in young adults (the T-score). SUMMARY OF CURRENT RESULTS: Region BMD T-score Z-score AP Spine (L1-L4) 0.999 -0.4 1.9 Femoral Neck (Left) 0.652 -1.8 0.3 Total Hip (Left) 0.813 -1.1 0.7 COMPARISON WITH PREVIOUS RESULTS Region Age BMD T-score BMD Change BMD Change Exam Date g/cm2 vs Baseline vs Previous AP Spine (L1-L4) 12/27/2021 76 0.999 -0.4 -4.4%# -0.9% 10/17/2018 73 1.008 -0.4 -3.5%# -8.9%# 04/13/2003 57 1.107 0.5 6.0%* 6.0%* 10/26/1999 54 1.044 Femoral Neck(Left) 12/27/2021 76 0.652 -1.8 -5.6%# 3.2% 10/17/2018 73 0.631 -2.0 -8.5%# -9.1%# 04/13/2003 57 0.695 -1.4 0.6% 0.6% 10/26/1999 54 0.690 -1.4 Total Hip(Left) 12/27/2021 76 0.813 -1.1 -3.6%# 2.2% 10/17/2018 73 0.795 -1.2 -5.7%# -3.7%# 04/13/2003 57 0.825 -1.0 -2.1% -2.1% 10/26/1999 54 0.843 -0.8 *Denotes significance at 95% confidence level # Denotes dissimilar scan types or analysis methods IMPRESSION: 1. The bone mineral density of the lumbar spine is normal. There has been a statistically significant decrease in bone mineral density since the baseline examination of 10/26/1999. 2. The bone mineral density of the left femoral neck is mildly decreased. There has been a statistically significant decrease in bone mineral density since the baseline examination of 10/26/1999. 3. The bone mineral density of the left total hip is mildly decreased. There has been a statistically significant decrease in bone mineral density since the baseline examination of 10/26/1999. 4. Overall, the above findings are diagnostic of low bone mass (osteopenia) by WHO criteria. 5. Based on the FRAX fracture risk model, the 10-year probability for major osteoporotic fracture is 11% and that for hip fracture is 2.5%. This 10-year fracture risk estimate was calculated using the risk factors noted in the history above, along with the femoral neck bone density. FRAX is intended to help guide treatment decisions in men over age 50 and postmenopausal women with low bone mass (osteopenia). The National Osteoporosis Foundation (NOF) recommends that FDA-approved medical therapies be considered in postmenopausal women and men age 50 years and older with osteoporosis and those with low bone mass whose 10-year fracture probability by FRAX is >= 20% for major osteoporotic fracture or >= 3% for hip fracture. However, all treatment decisions require clinical judgment and consideration of individual patient factors, including patient preferences, comorbidities, previous drug use, risk factors not captured in the FRAX model (e.g., frailty, falls, vitamin D deficiency, increased bone turnover, interval significant decline in bone density) and possible under- or overestimation of fracture risk by FRAX. General comments regarding interpretation of bone density measurements: A) In children, premenopausal woman and males under age 50 not at increased risk for fractures only Z-scores, not T-scores are used to indicate risk. A Z-score above -2.0 is defined as within the expected range for age and Z-score at or less than -2.0 is below the expected range for age . A Z-score below the expected range for age in a patient with recent fractures and/or chronic corticosteroid treatment is consistent with a diagnosis of osteoporosis. B) In post menopausal women and males over 50, comparison of the measured bone mineral density with the average value in young normal subjects (the T-score ) has been found to be useful in assessing fracture risk. Fracture risk approximately doubles for each 1.0 standard deviation (SD) in individual's hip or spine bone mineral density is below the average value of young normal subjects. The World Health Organization (WHO) has defined T-scores of -1.0 to -2.5 as diagnostic of low bone mass (OSTEOPENIA), and T-scores of -2.5 or lower to be diagnostic of OSTEOPOROSIS, based on the site of lowest bone density. Note that there will be a change in reporting format and reference databases as patients move from the younger population (group A) to the older population (group B) The National Osteoporosis Foundation (www.nof.org) recommends adequate intake of calcium and vitamin D and regular weight-bearing exercise in all patients. They recommend pharmacologic treatment in postmenopausal women and men age 50 and older presenting with any of the followin) Osteoporosis, after appropriate evaluation to exclude secondary causes. 2) A hip or vertebral (clinical or radiographic) fracture, regardless of the bone density. 3) Low bone mass (Osteopenia) and one or more of: other prior fractures, secondary causes associated with high risk of fracture (such as glucocorticoid use or total immobilization), or computed high risk of fracture (10-yr probability of hip fracture >= 3% or a 10-yr probability of any major osteoporosis-related fracture >= 20% based on the [place].-adapted WHO algorithm), available at http://www.shef.ac.uk/FRAX). The radiology attending physician has personally reviewed this study, and had reviewed and/or edited this written report and agrees with it. Electronically signed by: Kamran Mahoney M.D. Crow Hutton MD IMG DXA PROCEDURES Fin al Result * Hepatitis C antibody (12/14/2021 1:56 PM CDT) A-HCV II 0.05 Negative <0.90 [facility] Comment: <=0.9 negative 0.9-<1.0 borderline >= 1 positive Blood 12/14/2021 1:56 PM CDT 12/14/2021 2:17 PM CDT Crow Hutton MD LAB MICROBIOLOGY - GEN ERAL ORDERABLES Final Result Performing Organization Address City/State/[facility] Co de Phone Number [facility] [address] [place] [address] from Last 3 Months or Most Recently Relevant to Health Maintenance Insurance MEDICARE BLUE CROSS MEDICARE SUPPLEMENT MEDICARE [facility] MEDICARE [facility] [place] [id number] MEDICARE [employer] [place] Advance Directives For more information, please contact: [phone] * Full Code (Latest Code Status on File) Date Activated Date Inactivated Comments 05/09/2018 6:16 PM 05/12/2018 4:33 PM Care Teams Hydrogen Treater Relationship Specialty Start Date End Date Crow Hutton MD [address] [place] [address] PCP - General 06/21/17 Crow Hutton MD [address] [place] [address] 06/21/17
--- OUTSIDE RECORDS SUMMARY | 2024-05-06 13:06 | XMS_ITS | Encounter Summary ---
Author Organization [facility] Address [address] [place] [address] Phone Care Team Providers Care Analytics Director Name Role Phone Crow Hutton MD Primary Care Provider Crow Hutton MD Unavailable [phone] Encounter Details Date Type Department Care Team (Late st Contact Info) Description 02/01/2018 Orders Only [facility] Scanning, Provider Social History Tobacco Use Types Packs/Day Years Used Date Smoking Tobacco: Never Smokeless Tobacco: Never Alcohol Use Standard Drinks/Week Comments No 0 (1 standard drink = 0.6 oz pur e alcohol) Comments No Sex and Gender Information Value Date Recorded Sex Assigned at Not on file Legal Sex Female 8:22 PM IRONER SOCK Gender Identity Not on file Sexual Orientation Not on file documented as of this encounter Plan of Treatment Not on file documented as of this encounter Procedures Procedure Name Priority Date/Time Associated Diagnosis Comments SCAN - LABS 02/01/2018 documented in this encounter Results * SCAN - LABS (02/01/2018) us Provider Scanning Final Result documented in this encounter Visit Diagnoses Not on filedocumented in this encounter Additional Health Concerns Infection Onset Date Last Indicated Resolved Time COVID: Suspected 04/06/2021 04/06/2021 04/16/2021 3:05 AM IRONER SOCK COVID: Suspected 05/09/2022 05/09/2022 05/09/2022 2:27 PM IRONER SOCK documented as of this encounter Care Teams Analytics Director Relationship Specialty Start Date End Date Crow Hutton MD [address] [place] [address] PCP - General 06/21/17 Crow Hutton MD [address] [place] [address] 06/21/17 documented as of this encounter
--- OUTSIDE RECORDS SUMMARY | 2024-05-06 13:06 | XMS_ITS | Referral Summary ---
Author Organization [facility] Address [address] [place] [id number] Care Team Providers Care Production Manager Name Role Phone Crow Hutton MD Primary Care Provider Crow Hutton MD Unavailable [phone] Encounters Date Type Department Care Team Description 05/06/2024 Telephone [facility] Gastroenterology [address] [facility] Medicine [facility] [place] [address] [place] [phone] Nancy Kevin, RN 05/06/2024 Orders Only [facility] Gastroenterology [address] [place] [address] [place] [phone] Jimmy Morrison MD Abdominal pain (Primary Dx); History of diverticulitis 05/05/2024 Telephone [facility] Gastroenterology [address] [facility] Medicine [facility] [place] [address] [place] [phone] Maite Tristan Diverticulitis 04/03/2024 Telephone [facility] Gastroenterology [address] [facility] 12th [place] [address] [place] [phone] Nancy Kevin, RN 03/07/2024 Orders Only [address] [address] Crow Hutton MD 03/07/2024 10:30 AM SIGN SHOP SUPERVISOR Office Visit [address] [address] Daiana Crowell, JUKE BOX MECHANIC Rosacea (Primary Dx) from Last 3 Months Allergies Active Allergy Reactions Criticality Noted Date [...] every 4 years. Her GI doctor in [place] retired and requesting a scope here at [...] next few months. Discussed going back to [facility] which she will consider due to cost. [...] Date Diagnosed Date Resolved Date Atrial fibrillation (CMS/HCC) 05/10/2018 08/08/2023 Overview (09/26/2018): Single episode postop Assessment & Plan (05/11/2018 7:46 AM SIGN SHOP SUPERVISOR): -Would recommend starting metoprolol 25 mg p.o. [...] so if she remains in atrial fibrillation assisted, she should be on anticoagulant (prefer a DOAC such as apixaban or rivaroxaban). -If she has no recurrent AF during hospitalization, would plan to DC with 30D event monitor to screen for occult Afib, baby aspirin, and PCP follow up. 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 08/14/2014 09/26/2018 Epidermoid cyst 02/07/2013 09/26/2018 Immunizations Immunization Administration Dates Next Due Influenza, [...] 04/10/2012 ZOSTER LIVE 03/18/2199 ZOSTER Recombinant 01/04/2019,10/07/2018 Social History Tobacco Use Types Packs/Day Years [...] on file Legal Sex Female 8:22 PM SIGN SHOP SUPERVISOR Gender Identity Not on file Sexual Orientation Not on file 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 file Not on file N ot on file Last Filed Vital Signs Vital Sign Reading Time Taken Comments Blood Pressure 134/62 03/07/2024 10:17 AM SIGN SHOP SUPERVISOR Pulse 62 03/07/2024 10:17 AM SIGN SHOP SUPERVISOR Temperature 36.3 C (97.3 F) 12/27/2023 2:34 PM CDT Respiratory Rate 16 05/11/2018 11:40 PM SIGN SHOP SUPERVISOR Oxygen Saturation 97% 03/07/2024 10:17 AM SIGN SHOP SUPERVISOR Inhaled Oxygen Concentration - - Weight 65.3 kg (144 lb) 03/07/2024 10:17 AM SIGN SHOP SUPERVISOR Height 167.6 cm (5' 6 ) 12/27/2023 2:34 PM CDT Body Mass Index 23.24 12/27/2023 2:34 PM CDT Plan of Treatment Not on file Procedures Procedure Name Priority Date/Time Associated Diagnosis [...] PM CDT) A-HCV II 0.05 Negative <0.90 [facility] Comment: <=0.9 negative 0.9-<1.0 borderline >= 1 positive Blood 12/14/2021 1:56 PM CDT 12/14/2021 2:17 PM CDT Crow Hutton MD LAB MICROBIOLOGY - GEN ERAL ORDERABLES Final Result Performing Organization Address City/State/[facility] de Phone Number [facility] [address] [place] [address] from Last 3 Months or Most Recently Relevant to Health Maintenance Insurance MEDICARE BLUE CROSS MEDICARE SUPPLEMENT MEDICARE [facility] MEDICARE [facility] [address] [place] [address] MEDICARE [facility] Advance Directives For more information, please contact: [phone] * Full Code (Latest Code Status on File) Date Activated Date Inactivated Comments 05/09/2018 6:16 PM 05/12/2018 4:33 PM Care Teams Production Manager Relationship Specialty Start Date End Date Crow Hutton MD [address] [place] [address] PCP - General 06/21/17 Crow Hutton MD [address] [place] [address] 06/21/17
== END 2024-05-06 13:01 | disposition home or self-care (01) ==
PROVIDERS: PCP Internal Medicine; Visit Provider Internal Medicine Gastroenterology
DX: R10.9 Unspecified abdominal pain (principal); Z87.19 Personal history of other diseases of the digestive system
CPT/HCPCS: 74176

== ENCOUNTER 2024-12-11 12:38 | Outpatient (CLI) | payer MEDICARE, SELFPAY ==
--- NOTE | ~2024-12-11 | CT_ITS ---
EXAMINATION: CT abdomen pelvis wo con, 12/11/2024 12:40 CDT HISTORY: Diverticulitis COMPARISON: Comparison 05/06/2024 TECHNIQUE: CT scan of the abdomen and pelvis was performed without IV contrast. One or more of the following dose reduction techniques were used: automated exposure control, adjustment of the mA and/or kV according to patient size, use of iterative reconstruction technique. Unless otherwise stated, incidental findings do not require dedicated follow up imaging FINDINGS: CT abdomen: LUNG BASES: The lung bases are clear. The visualized portions of the heart and pericardium are unremarkable. LIVER: Simple appearing liver cysts the largest right lobe liver 1.5 x 1.5 cm. SPLEEN: Unremarkable, no splenomegaly. KIDNEYS: Right Kidney: Unremarkable. No calculi. No hydronephrosis. Left Kidney: Unremarkable. No calculi. No hydronephrosis ADRENAL GLANDS: Unremarkable. PANCREAS: Mild atrophy of the pancreas. GALLBLADDER/BILIARY: Unremarkable. No biliary dilatation. STOMACH AND ESOPHAGUS: The stomach is decompressed. BOWEL/MESENTERY: Moderate to severe diverticulosis, no acute diverticulitis or colitis. Moderate fecal content large bowel. Appendix normal. Mesentery normal. No dilated small bowel loops. ADENOPATHY/RETROPERITONEUM: No lymphadenopathy. AORTA/VASCULATURE: Normal caliber aorta. FREE FLUID OR FREE AIR: No free fluid.. CT pelvis: SOLID ORGANS/REPRODUCTIVE: Uterus atrophic. No adnexal mass. BLADDER: There is air within the bladder which may relate to recent instrumentation. OSSEOUS STRUCTURES: No acute osseous abnormality.No suspicious lesions. OVERLYING SOFT TISSUES: Unremarkable. IMPRESSION: No evidence of acute diverticulitis. Incidental findings above Reviewed, dictated and finalized at location P.
== END 2024-12-11 12:39 | disposition home or self-care (01) ==
LOC: MICIMG 12:41
PROVIDERS: PCP Internal Medicine Gastroenterology; Visit Provider Internal Medicine Gastroenterology
DX: K57.92 Diverticulitis of intestine, part unspecified, without perforation or abscess without bleeding (principal); R10.9 Unspecified abdominal pain
CPT/HCPCS: 74176